=== PATIENT | female | born 1930 | race Caucasian/White ===

== ENCOUNTER 2016-04-13 08:43 | Emergency (ER) | payer MEDICARE ==
[~2016-04-13 08:43] MED LIST: ASPIR LOW81 MG PO; CELEXA 20MG20 MG/TA1 PO; CIPRO 250MG TA250 MG PO; CIPRO500 M1 PO; CRANBERRY400 M3 PO; LANTUS PEN100 U/ML SC; LANTUS PEN100 U/ML SQ; LANTUS100 U/ML; LISINOPRIL10 MG PO; NOVOLOG FLEX100 U/ML IV; NOVOLOG FLEX100 U/ML SQ; OMNICEF 300MG300 MG PO; PREVACID 30MG30 M1 PO; PROBIOTIC1 EAC1 PO; SYNTHROID0.075 MG PO; TOPCARE 8 HOUR650 MG PO; TOPCARE OMEPRAZ20 MG PO
[2016-04-13] MEDS ORDERED: NOVOLOG FLEX100 U/ML SC ×2 (09:35→09:36)
[2016-04-13] MEDS ORDERED: NYSTATIN 1 ML1 ML TOP (09:37)
[2016-04-13] MEDS ORDERED: MACROBID 100 M100 MG PO (09:38)
[2016-04-13 10:38] VITALS: BP 149/68
== END 2016-04-13 10:41 | disposition other institution (70) ==
LOC: ED 08:43
DX: R41.82 Altered mental status, unspecified (principal); R41.0 Disorientation, unspecified; R53.1 Weakness; N39.0 Urinary tract infection, site not specified; Z87.440 Personal history of urinary (tract) infections
CPT/HCPCS: A4353

== ENCOUNTER 2016-04-13 10:41 | Inpatient (IN) | payer MEDICARE ==
[~2016-04-13 10:41] MED LIST changes: +MACROBID 100 M100 MG PO; +NOVOLOG FLEX100 U/ML SC; +NYSTATIN 1 ML1 ML TOP
[2016-04-13 11:27] VITALS: BP 149/68
[2016-04-13 15:28] VITALS: BP 139/60
[2016-04-13 18:25] VITALS: BP 136/57
[2016-04-13 23:32] VITALS: BP 121/59
[2016-04-14 03:16] VITALS: BP 139/58
[2016-04-14 06:19] VITALS: BP 108/53
[2016-04-14 11:07] VITALS: BP 111/49
[2016-04-14 15:21] VITALS: BP 115/51
[2016-04-14 18:01] VITALS: BP 126/45
[2016-04-14 22:40] VITALS: BP 11/69; BP 130/62
[2016-04-15 02:58] VITALS: BP 122/57
[2016-04-15 06:29] VITALS: BP 121/56
[2016-04-15] MEDS ORDERED: CIPRO 500MG TA500 MG PO (09:55)
[2016-04-15 10:30] VITALS: BP 126/56
== END 2016-04-15 10:48 | disposition home health service (06) | DRG 884 ==
LOC: MED/SURG 10:41
PROVIDERS: ADMIT Physician Assistant
DX: F03.90 Unspecified dementia, unspecified severity, without behavioral disturbance, psychotic disturbance, mood disturbance, and anxiety (principal); N39.0 Urinary tract infection, site not specified; Z66 Do not resuscitate; R53.1 Weakness; E11.9 Type 2 diabetes mellitus without complications; I10 Essential (primary) hypertension; K21.9 Gastro-esophageal reflux disease without esophagitis; E03.9 Hypothyroidism, unspecified; Z79.4 Long term (current) use of insulin; Z79.82 Long term (current) use of aspirin; Z87.440 Personal history of urinary (tract) infections
CPT/HCPCS: A4353; J1650; J1815